=== PATIENT | female | born 1970 | race Caucasian/White ===

== ENCOUNTER 2020-05-16 06:03 | Day surgery (SDC) | payer BC ==
[~2020-05-16] VITALS: Ht 162.6 cm; Wt 93.1 kg
[2020-05-16] MEDS ORDERED: LOSA25 PO (06:22)
[2020-05-16] MEDS ORDERED: GLIP2.5ER PO (06:23)
--- NOTE | 2020-05-16 06:44 | NUR ---
Patient up to Ambulate independently. Gait steady. Lungs clear T/O to Auscultation. Patient confirms NPO status and agrees with scheduled surgery. PT VOIDS s DIFFICULITY. CHEM BG 115.
--- NOTE | 2020-05-16 09:54 | NUR ---
Patient up to Ambulate independently. Gait steady. Discharge instructions reviewed with patient. Patient verbalizes understanding. Copy given to patient to take home. Patient States Post-Procedure ride home has been arranged. Discharged via wheelchair to private car for ride home.ALL BELONINGS RETURNED TO PATIENT. TWO PAIN PILLS GIVEN FOR PAIN. 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
== END 2020-05-16 22:37 | disposition home or self-care (01) ==
LOC: ORSCMMR 06:03
PROVIDERS: Obstetrics & Gynecology
PROC: 0UT04ZZ Resection of Right Ovary, Percutaneous Endoscopic Approach (ICD-10-PCS; principal; 2020-05-16 07:30)
PROC: 0UT74ZZ Resection of Bilateral Fallopian Tubes, Percutaneous Endoscopic Approach (ICD-10-PCS; principal; 2020-05-16 07:30)
DX: D27.0 Benign neoplasm of right ovary (principal); I10 Essential (primary) hypertension; E11.9 Type 2 diabetes mellitus without complications; K21.9 Gastro-esophageal reflux disease without esophagitis; E66.01 Morbid (severe) obesity due to excess calories; Z68.35 Body mass index [BMI] 35.0-35.9, adult; Z79.899 Other long term (current) drug therapy
CPT/HCPCS: 82947; 88108; 88305; A9270; J1100; J1885; J2250; J2405; J2704; J3010; J7120

== ENCOUNTER 2022-11-30 09:03 | Day surgery (SDC) | payer BC | END 2022-12-10 22:52 | disposition home or self-care (01) | LOC: MOI US 09:03 | DX: C50.912 Malignant neoplasm of unspecified site of left female breast (principal) ==

== ENCOUNTER 2022-12-05 08:04 | Day surgery (SDC) | payer BC ==
[~2022-12-05] VITALS: Ht 162.6 cm; Wt 83.4 kg
[2022-12-05] VITALS (10 sets, daily range): BP systolic 114–135; BP diastolic 64–90
[~2022-12-05 08:04] MED LIST: ACAR50 PO; GLIP2.5ER PO; LOSA25 PO; MAGCHL64ER; MOUNJARO7.5 MG/0.5; MULVITA
--- NOTE | 2022-12-05 14:15 | NUR ---
REPORT RECIEVED. PT UP IN BED TOLERING PO FLUIDS AND CRACKERS/CHEESE. FAMILY AT BEDSIDE. DRESSING C/D/I. REPORTS MILD PAIN AND DISCOMFORT. REVIEWING POST OP PAIN MEDICATION ORDERS AT THIS TIME. VSS ON ROOM AIR
--- NOTE | 2022-12-05 14:32 | NUR ---
Discharge instructions reviewed with patient. AND FAMILY Patient verbalizes understanding. Copy given to patient to take home. ICE PACK PLACED AND PROVIDED.
--- NOTE | 2022-12-05 14:53 | NUR ---
Patient up to Ambulate independently. Gait steady. Dressing to procedure site clean, dry, intact with no visible drainage, swelling, erythema or bruising noted. Discharged via wheelchair to private car for ride home. PT DENIES PAIN AND N/V
== END 2022-12-05 14:54 | disposition home or self-care (01) ==
LOC: ORSCMMR 08:04
PROVIDERS: Surgery
PROC: 0HBU0ZZ Excision of Left Breast, Open Approach (ICD-10-PCS; principal; 2022-12-05 10:00)
PROC: 07B60ZX Excision of Left Axillary Lymphatic, Open Approach, Diagnostic (ICD-10-PCS; principal; 2022-12-05 10:00)
DX: C50.912 Malignant neoplasm of unspecified site of left female breast (principal); Z17.0 Estrogen receptor positive status [ER+]; D36.0 Benign neoplasm of lymph nodes; I10 Essential (primary) hypertension; E11.9 Type 2 diabetes mellitus without complications; Z79.899 Other long term (current) drug therapy
CPT/HCPCS: 38792; 76098; 82947; 88307; A9270; A9520; J0690; J1100; J1885; J2405; J2704; J3010; J7120; Q9968

== ENCOUNTER 2023-01-09 07:05 | Day surgery (SDC) | payer BC ==
[2023-01-09] VITALS (9 sets, daily range): BP systolic 107–126; BP diastolic 65–89
[~2023-01-09] VITALS: Ht 162.6 cm; Wt 82.9 kg
--- NOTE | 2023-01-09 07:42 | NUR ---
Ambulatory in Day Surgery Patient confirms NPO status and agrees with scheduled surgery. History, Chart, Medications and Allergies reviewed before start of procedure.Pre-Op teaching done. Pt verbalizes understanding. Patient States Post-Procedure ride home has been arranged.
--- NOTE | 2023-01-09 09:13 | NUR ---
PT TO DAY SURGERY FOR RECOVERY. AWAKE AND ALERT X3. ABLE TO MOVE IN BED BY SELF. PO FLUIDS GIVEN, CRACKERS GIVEN. PT HAS 2 INCISION ON UPPER RIGHT CHEST/LOWER NECK. BOTH INCISIONS ARE C/D/I WITH SKIN ADHESIVE. ICE PACK APPLIED.
--- NOTE | 2023-01-09 09:27 | NUR ---
NO CHANGE IN INCISIONS, REMAIN C/D/I.
--- NOTE | 2023-01-09 09:42 | NUR ---
Patient up to Ambulate independently. Gait steady. Discharge instructions reviewed with patient. Patient verbalizes understanding. Copy given to patient to take home. Patient States Post-Procedure ride home has been arranged. Discharged via wheelchair to private car for ride home.
== END 2023-01-09 09:50 | disposition home or self-care (01) ==
LOC: ORSCMMR 07:05 → ORD 08:00 → ORSCMMR 08:00 → ORD 09:30 → ORSCMMR 09:30
PROVIDERS: Surgery
PROC: B543ZZA Ultrasonography of Right Jugular Veins, Guidance (ICD-10-PCS; principal; 2023-01-09 08:00)
PROC: 05HM33Z Insertion of Infusion Device into Right Internal Jugular Vein, Percutaneous Approach (ICD-10-PCS; principal; 2023-01-09 08:00)
PROC: 0JH63WZ Insertion of Totally Implantable Vascular Access Device into Chest Subcutaneous Tissue and Fascia, Percutaneous Approach (ICD-10-PCS; principal; 2023-01-09 08:00)
DX: C50.412 Malignant neoplasm of upper-outer quadrant of left female breast (principal); Z17.0 Estrogen receptor positive status [ER+]; I10 Essential (primary) hypertension; E11.9 Type 2 diabetes mellitus without complications; Z79.899 Other long term (current) drug therapy; E66.9 Obesity, unspecified; Z68.34 Body mass index [BMI] 34.0-34.9, adult
CPT/HCPCS: 77001; 82947; A9270; C1788; J0330; J0690; J1100; J1642; J2405; J2704; J3010; J7120

== ENCOUNTER 2024-05-19 14:03 | Day surgery (SDC) | payer BC ==
[~2024-05-19] VITALS: Ht 162.6 cm; Wt 83.1 kg
[2024-05-19] VITALS (14 sets, daily range): BP systolic 110–155; BP diastolic 74–121
[~2024-05-19 14:03] MED LIST changes: +Lactated Ringer's 1,000 ML IV SCH
[2024-05-19] MEDS ORDERED: Vitamin D1000 UNI1 PO (14:26)
[2024-05-19] MEDS ORDERED: VITAMIN D5000 UNIT PO (14:26)
[2024-05-19] MEDS ORDERED: METF500 PO (14:27)
[2024-05-19] MEDS ORDERED: ANASTROZOLE1 M7 PO (14:28)
[2024-05-19] MEDS ORDERED: OMEGA 3 PO (14:30)
--- NOTE | 2024-05-19 14:53 | NUR ---
Ambulatory in Day Surgery History, Chart, Medications and Allergies reviewed before start of procedure. Pre-Op teaching done. Pt verbalizes understanding. Patient States Post-Procedure ride home has been arranged.
[2024-05-19] MEDS ORDERED: propofoL 40 ML IV ONE (15:04)
--- NOTE | 2024-05-19 15:25 | NUR ---
05/19/24 1525 Chetna Vargas CONFIRMED AND REVIEWED H&P, MEDCICATIONS, ALLERGIES, MEDICAL HISTORY, RESPIRATORY HISTORY, VITAL SIGNS, 3-LEAD EKG, CONSENTS, AND PHYSICIAN ORDERS. PATIENT CONFIRMS NPO STATUS AND AGREES WITH SCHEDULED PROCEDURE. MONITOR INTACT WITH CONTINUOUS PULSE OXIMETRY, CAPNOGRAPHY, 3-LEAD EKG, INTERMITTENT BP. SUPPLEMENTAL O2 TO BE TITRATED THROUGHOUT PROCEDURE TO MAINTAIN O2 SATURATION ABOVE 90%. PATIENT DETERMINED TO BE ASA APPROPRIATE FOR PROPOFOL SEDATION PRIOR TO START OF PROCEDURE BY DR. FONTANEZ
--- NOTE | 2024-05-19 15:57 | NUR ---
Discharge instructions reviewed with patient. Patient verbalizes understanding. Copy given to patient to take home. Patient States Post-Procedure ride home has been arranged. Discharged via wheelchair to private car for ride home.
== END 2024-05-19 15:59 | disposition home or self-care (01) ==
LOC: ORSCSDS 14:03 → ORSCMMR 14:05 → ORSCSDS 15:15
PROVIDERS: Surgery
PROC: 0DJD8ZZ Inspection of Lower Intestinal Tract, Via Natural or Artificial Opening Endoscopic (ICD-10-PCS; principal; 2024-05-19 15:15)
DX: Z12.11 Encounter for screening for malignant neoplasm of colon (principal); Z85.3 Personal history of malignant neoplasm of breast; I10 Essential (primary) hypertension; E11.9 Type 2 diabetes mellitus without complications
CPT/HCPCS: 82947; J2704; J7120

== ENCOUNTER → 2024-12-22 | Outpatient (CLI) | payer OTHER, BC ==
[~2024-12-22] MED LIST changes: +ANASTROZOLE1 M7 PO; -Lactated Ringer's 1,000 ML IV SCH; +METF500 PO; +OMEGA 3 PO; +VITAMIN D5000 UNIT PO; +Vitamin D1000 UNI1 PO
== END | disposition home or self-care (01) ==
LOC: LAB 11:07 → LAB SHORT 11:07
PROVIDERS: Obstetrics & Gynecology
DX: Z01.419 Encounter for gynecological examination (general) (routine) without abnormal findings (principal)
CPT/HCPCS: 87624; G0145